=== PATIENT | female | born 1980 | race African-American/Black ===

== ENCOUNTER 2024-11-04 20:14 | Emergency (ER) | payer SELFPAY ==
[~2024-11-04] VITALS: Ht 160 cm; Wt 63.5 kg
[2024-11-04 20:20] VITALS: BP 148/89; PULSE 110; RESP 18; TEMP 97.5; O2SAT 100
== END 2024-11-04 20:26 | disposition left against medical advice (07) ==
LOC: ER 20:14
DX: R56.9 Unspecified convulsions (principal); Z53.21 Procedure and treatment not carried out due to patient leaving prior to being seen by health care provider